=== PATIENT | male | born 1960 | race Caucasian/White ===

== ENCOUNTER → 2019-06-22 09:47 | Outpatient (BNVA) | payer MEDICARE, MEDICAID, SELFPAY | PROVIDERS: Family Provider Nurse Practitioner Family; PCP Nurse Practitioner Family | DX: Z94.4 Liver transplant status (principal) | CPT/HCPCS: 80053; 82977; 83735; 85007; 85027 ==

== ENCOUNTER → 2019-07-11 13:53 | Outpatient (BNVA) | payer MEDICARE, MEDICAID, SELFPAY | PROVIDERS: Family Provider Nurse Practitioner Family; PCP Nurse Practitioner Family; Visit Provider Registered Nurse | DX: E11.9 Type 2 diabetes mellitus without complications (principal) | CPT/HCPCS: 83036 ==

== ENCOUNTER 2019-08-18 15:18 | Outpatient (CLI) | payer MEDICARE, MEDICAID, SELFPAY | END 2019-08-18 15:19 | disposition home or self-care (01) | LOC: RADWPI 15:25 | PROVIDERS: Family Provider Nurse Practitioner Family; PCP Registered Nurse; Visit Provider Nurse Practitioner Family | DX: Z01.89 Encounter for other specified special examinations (principal) ==

== ENCOUNTER → 2019-08-31 08:25 | Outpatient (BNVA) | payer MEDICARE, MEDICAID, SELFPAY | PROVIDERS: Family Provider Nurse Practitioner Family; PCP Registered Nurse; Visit Provider Internal Medicine Gastroenterology | DX: Z79.899 Other long term (current) drug therapy (principal); Z94.4 Liver transplant status | CPT/HCPCS: 11042; 80053; 80197; 82977; 83735; 85007; 85027 ==

== ENCOUNTER 2019-09-08 09:00 | Outpatient (RCR) | payer MEDICARE, MEDICAID, SELFPAY ==
--- NOTE | 2019-08-18 15:27 | XR_ITS ---
WS: [id number] FOOT LEFT TECHNIQUE: 3 views of the left foot CLINICAL INFORMATION: PAIN REDNESS, NONHEALING ULCER COMPARISON: None. FINDINGS: Normal metatarsals. Advanced urinary changes involving the tarsal bones and TMT joints. Hammertoe def ormities. Soft tissue edema overlying the fifth digit. Plantar calcaneal spurring. No evidence of ost eomyelitis. XR/XR foot LT min 3V* 12561 IMPRESSION: No evidence of osteomyelitis
== END 2019-09-13 23:59 | disposition home or self-care (01) ==
LOC: WOUND 09:00
PROVIDERS: Family Provider Nurse Practitioner Family; PCP Nurse Practitioner Family; Visit Provider Nurse Practitioner Family
DX: E11.621 Type 2 diabetes mellitus with foot ulcer (principal); L97.522 Non-pressure chronic ulcer of other part of left foot with fat layer exposed; M79.672 Pain in left foot
CPT/HCPCS: 11042; 73630; 87070; 87077; 87176; 87186; 87205; G0463; L3260

== ENCOUNTER → 2019-11-22 09:18 | Outpatient (BNVA) | payer MEDICARE, MEDICAID, SELFPAY | PROVIDERS: Family Provider Nurse Practitioner Family; PCP Registered Nurse; Visit Provider Internal Medicine Gastroenterology | DX: Z84.89 Family history of other specified conditions (principal); Z94.4 Liver transplant status; E08.621 Diabetes mellitus due to underlying condition with foot ulcer; L97.422 Non-pressure chronic ulcer of left heel and midfoot with fat layer exposed | CPT/HCPCS: 80053; 80197; 82977; 83036; 83735; 85007; 85027 ==

== ENCOUNTER → 2020-01-19 10:16 | Outpatient (BNVA) | payer MEDICARE, MEDICAID, SELFPAY | PROVIDERS: Family Provider Nurse Practitioner Family; PCP Registered Nurse; Visit Provider Internal Medicine Gastroenterology | DX: E08.621 Diabetes mellitus due to underlying condition with foot ulcer (principal); L97.422 Non-pressure chronic ulcer of left heel and midfoot with fat layer exposed; Z94.4 Liver transplant status | CPT/HCPCS: 80053; 80197; 82977; 83036; 83735; 85007; 85027 ==

== ENCOUNTER → 2020-02-28 11:15 | Outpatient (BNVA) | payer MEDICARE, MEDICAID, SELFPAY | PROVIDERS: Family Provider Nurse Practitioner Family; PCP Registered Nurse; Visit Provider Registered Nurse | DX: Z94.4 Liver transplant status (principal); Z79.899 Other long term (current) drug therapy | CPT/HCPCS: 80053; 80197; 82977; 83735; 85007; 85027 ==

== ENCOUNTER → 2020-03-14 09:02 | Outpatient (BNVA) | payer MEDICARE, MEDICAID, SELFPAY | PROVIDERS: Family Provider Nurse Practitioner Family; PCP Registered Nurse; Visit Provider Internal Medicine Gastroenterology | DX: Z94.4 Liver transplant status (principal) | CPT/HCPCS: 80053; 80197; 82977; 83735; 85025 ==

== ENCOUNTER → 2020-06-26 08:22 | Outpatient (BNVA) | payer MEDICARE, MEDICAID, SELFPAY | PROVIDERS: Family Provider Nurse Practitioner Family; PCP Registered Nurse; Visit Provider Internal Medicine Gastroenterology | DX: E11.9 Type 2 diabetes mellitus without complications (principal); Z94.4 Liver transplant status | CPT/HCPCS: 80053; 80197; 82977; 83036; 83735; 85007; 85027 ==

== ENCOUNTER → 2020-07-03 14:23 | Outpatient (BNVA) | payer MEDICARE, MEDICAID, SELFPAY | PROVIDERS: Family Provider Nurse Practitioner Family; PCP Registered Nurse; Visit Provider Registered Nurse | DX: Z20.828 Contact with and (suspected) exposure to other viral communicable diseases (principal) | CPT/HCPCS: 87635 ==

== ENCOUNTER → 2020-08-21 08:07 | Outpatient (BNVA) | payer MEDICARE, MEDICAID, SELFPAY | PROVIDERS: Family Provider Nurse Practitioner Family; PCP Registered Nurse; Visit Provider Internal Medicine Gastroenterology | DX: Z94.4 Liver transplant status (principal); E11.9 Type 2 diabetes mellitus without complications | CPT/HCPCS: 80053; 80197; 82977; 83735; 85007; 85027 ==

== ENCOUNTER → 2020-10-26 08:40 | Outpatient (BNVA) | payer MEDICARE, MEDICAID, SELFPAY | PROVIDERS: Family Provider Nurse Practitioner Family; PCP Registered Nurse; Visit Provider Internal Medicine Gastroenterology | DX: Z94.4 Liver transplant status (principal) | CPT/HCPCS: 80053; 80197; 82977; 83735; 85007; 85027 ==

== ENCOUNTER → 2020-12-20 08:40 | Outpatient (BNVA) | payer MEDICARE, MEDICAID, SELFPAY | PROVIDERS: Family Provider Nurse Practitioner Family; PCP Registered Nurse; Visit Provider Internal Medicine Gastroenterology | DX: Z94.4 Liver transplant status (principal); E11.9 Type 2 diabetes mellitus without complications | CPT/HCPCS: 80053; 80197; 83036; 83735; 85025 ==

== ENCOUNTER → 2021-03-04 09:15 | Outpatient (BNVA) | payer MEDICARE, MEDICAID, SELFPAY | PROVIDERS: Family Provider Nurse Practitioner Family; PCP Registered Nurse; Visit Provider Internal Medicine Gastroenterology | DX: Z94.4 Liver transplant status (principal) | CPT/HCPCS: 80053; 80197; 82977; 83735; 85007; 85027 ==

== ENCOUNTER → 2021-04-18 08:11 | Outpatient (BNVA) | payer MEDICARE, MEDICAID, SELFPAY | PROVIDERS: Family Provider Nurse Practitioner Family; PCP Registered Nurse; Visit Provider Internal Medicine Gastroenterology | DX: Z94.4 Liver transplant status (principal) | CPT/HCPCS: 80053; 80197; 82977; 83735; 85007; 85027 ==

== ENCOUNTER → 2021-06-28 09:16 | Outpatient (BNVA) | payer MEDICARE, MEDICAID, SELFPAY | PROVIDERS: Family Provider Nurse Practitioner Family; PCP Registered Nurse; Visit Provider Internal Medicine Gastroenterology | DX: E11.9 Type 2 diabetes mellitus without complications (principal); Z94.4 Liver transplant status | CPT/HCPCS: 80053; 80197; 83735; 85025 ==

== ENCOUNTER → 2021-08-21 11:29 | Outpatient (BNVA) | payer MEDICARE, MEDICAID, SELFPAY | PROVIDERS: Family Provider Nurse Practitioner Family; PCP Registered Nurse; Referring Provider Registered Nurse; Visit Provider Specialist | DX: M25.462 Effusion, left knee (principal) | CPT/HCPCS: 73560; 73565 ==

== ENCOUNTER → 2021-08-28 08:59 | Outpatient (BNVA) | payer MEDICARE, MEDICAID, SELFPAY | PROVIDERS: Family Provider Nurse Practitioner Family; PCP Registered Nurse; Visit Provider Internal Medicine Gastroenterology | DX: Z94.4 Liver transplant status (principal); E11.9 Type 2 diabetes mellitus without complications; I10 Essential (primary) hypertension | CPT/HCPCS: 80053; 80197; 82977; 83036; 83735; 85025 ==

== ENCOUNTER → 2021-10-18 13:13 | Outpatient (BNVA) | payer MEDICARE, MEDICAID, SELFPAY | PROVIDERS: Family Provider Nurse Practitioner Family; PCP Registered Nurse; Visit Provider Surgery | DX: E11.621 Type 2 diabetes mellitus with foot ulcer (principal); L97.511 Non-pressure chronic ulcer of other part of right foot limited to breakdown of skin; Z87.891 Personal history of nicotine dependence | CPT/HCPCS: 11042; 73630; 99213 ==

== ENCOUNTER 2021-10-18 14:42 | Outpatient (CLI) | payer MEDICARE, MEDICAID, SELFPAY ==
--- NOTE | 2021-10-18 14:59 | XR_ITS ---
WS: [id number] Right foot, 3 views, 10/18/2021 Clinical Data: DIABETES MELLITUS DUE TO UNDERLYING CONDITION W/FOOT ULCER Comparison: Right foot, 09/13/2016. Findings: The first through fifth metacarpal tarsal heads are absent and have probably been resected. There is fusion of the distal aspects of the right second, third and fourth metatarsals unchanged. There is p eriosteal reaction along the medial aspect of the distal right fifth metatarsal. There is absence of the right fourth and fifth toes. There is sclerosis of the right tibial talar articulation unchanged. No fractures or dislocations are seen. There is a plantar spur and calcification in the distal Achilles tendon. XR/XR foot RT min 3V* 16442 Impression: 1. Probable amputation of the heads of the right first through fifth metatarsal s unchanged. 2. Fusion between the right second through fourth metatarsals distally unchange d. 3. Deformity of the right first metatarsal and right fifth metatarsal which rem ains the same. 4. Sclerosis of the tibial talar articulation unchanged.
== END 2021-10-18 14:43 | disposition home or self-care (01) ==
LOC: RAD 14:46
PROVIDERS: Family Provider Nurse Practitioner Family; PCP Registered Nurse; Visit Provider Surgery
DX: E11.621 Type 2 diabetes mellitus with foot ulcer (principal)
CPT/HCPCS: 11042; 73630; 99213

== ENCOUNTER → 2021-10-25 09:54 | Outpatient (BNVA) | payer MEDICARE, MEDICAID, SELFPAY | PROVIDERS: Family Provider Nurse Practitioner Family; PCP Registered Nurse; Visit Provider Emergency Medicine | DX: E11.621 Type 2 diabetes mellitus with foot ulcer (principal); L97.511 Non-pressure chronic ulcer of other part of right foot limited to breakdown of skin; I96 Gangrene, not elsewhere classified; Z94.4 Liver transplant status | CPT/HCPCS: 11042; 80053; 80197; 82977; 83735; 85007; 85027; A6210 ==

== ENCOUNTER → 2021-10-29 12:27 | Outpatient (BNVA) | payer MEDICARE, MEDICAID, SELFPAY | PROVIDERS: Family Provider Nurse Practitioner Family; PCP Registered Nurse; Referring Provider Surgery; Visit Provider Podiatrist Foot & Ankle Surgery | DX: E11.621 Type 2 diabetes mellitus with foot ulcer (principal); L97.512 Non-pressure chronic ulcer of other part of right foot with fat layer exposed; Q66.70 Congenital pes cavus, unspecified foot; E11.42 Type 2 diabetes mellitus with diabetic polyneuropathy; M79.671 Pain in right foot | CPT/HCPCS: 73630; 99203; 99204 ==

== ENCOUNTER → 2021-11-01 09:19 | Outpatient (BNVA) | payer MEDICARE, MEDICAID, SELFPAY | PROVIDERS: Family Provider Nurse Practitioner Family; PCP Registered Nurse; Visit Provider Surgery | DX: E11.621 Type 2 diabetes mellitus with foot ulcer (principal); L97.511 Non-pressure chronic ulcer of other part of right foot limited to breakdown of skin; I96 Gangrene, not elsewhere classified | CPT/HCPCS: 11042 ==

== ENCOUNTER → 2021-11-08 09:44 | Outpatient (BNVA) | payer MEDICARE, MEDICAID, SELFPAY | PROVIDERS: Family Provider Nurse Practitioner Family; PCP Registered Nurse; Visit Provider Surgery | DX: E11.621 Type 2 diabetes mellitus with foot ulcer (principal); L97.511 Non-pressure chronic ulcer of other part of right foot limited to breakdown of skin; I96 Gangrene, not elsewhere classified | CPT/HCPCS: 11042; A6210 ==

== ENCOUNTER → 2021-11-15 08:58 | Outpatient (BNVA) | payer MEDICARE, MEDICAID, SELFPAY | PROVIDERS: Family Provider Nurse Practitioner Family; PCP Registered Nurse; Visit Provider Surgery | DX: E11.621 Type 2 diabetes mellitus with foot ulcer (principal); L97.511 Non-pressure chronic ulcer of other part of right foot limited to breakdown of skin; I96 Gangrene, not elsewhere classified | CPT/HCPCS: 97597; A6212 ==

== ENCOUNTER → 2021-11-22 09:37 | Outpatient (BNVA) | payer MEDICARE, MEDICAID, SELFPAY | PROVIDERS: Family Provider Nurse Practitioner Family; PCP Registered Nurse; Visit Provider Nurse Practitioner Family | DX: E11.621 Type 2 diabetes mellitus with foot ulcer (principal); L97.511 Non-pressure chronic ulcer of other part of right foot limited to breakdown of skin; I96 Gangrene, not elsewhere classified | CPT/HCPCS: 15275; A6206; Q4205 ==

== ENCOUNTER → 2021-11-29 09:42 | Outpatient (BNVA) | payer MEDICARE, MEDICAID, SELFPAY | PROVIDERS: Family Provider Nurse Practitioner Family; PCP Registered Nurse; Visit Provider Nurse Practitioner Family | DX: E11.621 Type 2 diabetes mellitus with foot ulcer (principal); L97.511 Non-pressure chronic ulcer of other part of right foot limited to breakdown of skin; I96 Gangrene, not elsewhere classified | CPT/HCPCS: 15275; A6206; Q4205 ==

== ENCOUNTER → 2021-12-05 13:57 | Outpatient (BNVA) | payer MEDICARE, MEDICAID, SELFPAY | PROVIDERS: Family Provider Nurse Practitioner Family; PCP Registered Nurse; Visit Provider Nurse Practitioner Family | DX: E11.621 Type 2 diabetes mellitus with foot ulcer (principal); L97.511 Non-pressure chronic ulcer of other part of right foot limited to breakdown of skin; I96 Gangrene, not elsewhere classified | CPT/HCPCS: 15275; A6206; Q4205 ==

== ENCOUNTER → 2021-12-13 07:51 | Outpatient (BNVA) | payer MEDICARE, MEDICAID, SELFPAY | PROVIDERS: Family Provider Nurse Practitioner Family; PCP Registered Nurse; Visit Provider Surgery | DX: E11.621 Type 2 diabetes mellitus with foot ulcer (principal); L97.512 Non-pressure chronic ulcer of other part of right foot with fat layer exposed; Z09 Encounter for follow-up examination after completed treatment for conditions other than malignant neoplasm; I96 Gangrene, not elsewhere classified | CPT/HCPCS: 11043; A6210; A6212 ==

== ENCOUNTER → 2021-12-20 07:52 | Outpatient (BNVA) | payer MEDICARE, MEDICAID, SELFPAY | PROVIDERS: Family Provider Nurse Practitioner Family; PCP Registered Nurse; Visit Provider Surgery | DX: E11.621 Type 2 diabetes mellitus with foot ulcer (principal); L97.511 Non-pressure chronic ulcer of other part of right foot limited to breakdown of skin; I96 Gangrene, not elsewhere classified; L97.512 Non-pressure chronic ulcer of other part of right foot with fat layer exposed | CPT/HCPCS: 11042; 15271; A6206; A6210; Q4205 ==

== ENCOUNTER → 2021-12-27 08:47 | Outpatient (BNVA) | payer MEDICARE, MEDICAID, SELFPAY | PROVIDERS: Family Provider Nurse Practitioner Family; PCP Registered Nurse; Visit Provider Surgery | DX: E11.621 Type 2 diabetes mellitus with foot ulcer (principal); L97.511 Non-pressure chronic ulcer of other part of right foot limited to breakdown of skin; I96 Gangrene, not elsewhere classified; L97.512 Non-pressure chronic ulcer of other part of right foot with fat layer exposed | CPT/HCPCS: 15271; A6207; Q4205 ==

== ENCOUNTER → 2022-01-02 08:33 | Outpatient (BNVA) | payer MEDICARE, MEDICAID, SELFPAY | PROVIDERS: Family Provider Nurse Practitioner Family; PCP Registered Nurse; Visit Provider Internal Medicine Gastroenterology | DX: Z79.899 Other long term (current) drug therapy (principal); Z94.4 Liver transplant status | CPT/HCPCS: 80053; 80197; 82977; 83735; 85007; 85027 ==

== ENCOUNTER → 2022-01-03 08:30 | Outpatient (BNVA) | payer MEDICARE, MEDICAID, SELFPAY | PROVIDERS: Family Provider Nurse Practitioner Family; PCP Registered Nurse; Visit Provider Nurse Practitioner Family | DX: Z09 Encounter for follow-up examination after completed treatment for conditions other than malignant neoplasm (principal) | CPT/HCPCS: 99212 ==

== ENCOUNTER → 2022-01-17 08:33 | Outpatient (BNVA) | payer MEDICARE, MEDICAID, SELFPAY | PROVIDERS: Family Provider Nurse Practitioner Family; PCP Registered Nurse; Visit Provider Nurse Practitioner Family | DX: Z09 Encounter for follow-up examination after completed treatment for conditions other than malignant neoplasm (principal) | CPT/HCPCS: 99212; A6219 ==

== ENCOUNTER → 2022-02-14 13:03 | Outpatient (BNVA) | payer MEDICARE, MEDICAID, SELFPAY | PROVIDERS: Family Provider Nurse Practitioner Family; PCP Registered Nurse; Visit Provider Surgery | DX: I96 Gangrene, not elsewhere classified (principal); E11.621 Type 2 diabetes mellitus with foot ulcer; L97.512 Non-pressure chronic ulcer of other part of right foot with fat layer exposed | CPT/HCPCS: 11042 ==

== ENCOUNTER → 2022-02-21 09:52 | Outpatient (BNVA) | payer MEDICARE, MEDICAID, SELFPAY | PROVIDERS: Family Provider Nurse Practitioner Family; PCP Registered Nurse; Visit Provider Nurse Practitioner Family | DX: E11.621 Type 2 diabetes mellitus with foot ulcer (principal); L97.512 Non-pressure chronic ulcer of other part of right foot with fat layer exposed; I96 Gangrene, not elsewhere classified | CPT/HCPCS: 11042; 80053; 80197; 82977; 83735; 85007; 85027; A6210 ==

== ENCOUNTER → 2022-02-28 09:57 | Outpatient (BNVA) | payer MEDICARE, MEDICAID, SELFPAY | PROVIDERS: Family Provider Nurse Practitioner Family; PCP Registered Nurse; Visit Provider Nurse Practitioner Family | DX: I96 Gangrene, not elsewhere classified (principal); E11.621 Type 2 diabetes mellitus with foot ulcer; L97.512 Non-pressure chronic ulcer of other part of right foot with fat layer exposed | CPT/HCPCS: 11042 ==

== ENCOUNTER → 2022-03-07 09:58 | Outpatient (BNVA) | payer MEDICARE, MEDICAID, SELFPAY | PROVIDERS: Family Provider Nurse Practitioner Family; PCP Registered Nurse; Visit Provider Surgery | DX: I96 Gangrene, not elsewhere classified (principal); E11.621 Type 2 diabetes mellitus with foot ulcer; L97.512 Non-pressure chronic ulcer of other part of right foot with fat layer exposed | CPT/HCPCS: 15275; A6206; A6250; Q4205 ==

== ENCOUNTER → 2022-03-14 08:34 | Outpatient (BNVA) | payer MEDICARE, MEDICAID, SELFPAY | PROVIDERS: Family Provider Nurse Practitioner Family; PCP Registered Nurse; Visit Provider Surgery | DX: I96 Gangrene, not elsewhere classified (principal); E11.621 Type 2 diabetes mellitus with foot ulcer; L97.512 Non-pressure chronic ulcer of other part of right foot with fat layer exposed | CPT/HCPCS: 15275; A6206; Q4205 ==

== ENCOUNTER → 2022-03-21 08:20 | Outpatient (BNVA) | payer MEDICARE, MEDICAID, SELFPAY | PROVIDERS: Family Provider Nurse Practitioner Family; PCP Registered Nurse; Visit Provider Nurse Practitioner Family | DX: I96 Gangrene, not elsewhere classified (principal); E11.621 Type 2 diabetes mellitus with foot ulcer; L97.512 Non-pressure chronic ulcer of other part of right foot with fat layer exposed | CPT/HCPCS: 15275; A6206; A6250; Q4205 ==

== ENCOUNTER → 2022-03-28 08:36 | Outpatient (BNVA) | payer MEDICARE, MEDICAID, SELFPAY | PROVIDERS: Family Provider Nurse Practitioner Family; PCP Registered Nurse; Visit Provider Nurse Practitioner Family | DX: I96 Gangrene, not elsewhere classified (principal); E11.621 Type 2 diabetes mellitus with foot ulcer; L97.512 Non-pressure chronic ulcer of other part of right foot with fat layer exposed; Z79.84 Long term (current) use of oral hypoglycemic drugs | CPT/HCPCS: 15271; 15275; A6206; A6220; Q4205 ==

== ENCOUNTER → 2022-04-04 09:08 | Outpatient (BNVA) | payer MEDICARE, MEDICAID, SELFPAY | PROVIDERS: Family Provider Nurse Practitioner Family; PCP Registered Nurse; Visit Provider Nurse Practitioner Family | DX: I96 Gangrene, not elsewhere classified (principal); E11.621 Type 2 diabetes mellitus with foot ulcer; L97.512 Non-pressure chronic ulcer of other part of right foot with fat layer exposed; Z79.84 Long term (current) use of oral hypoglycemic drugs | CPT/HCPCS: 11042 ==

== ENCOUNTER → 2022-04-10 10:38 | Outpatient (BNVA) | payer MEDICARE, MEDICAID, SELFPAY | PROVIDERS: Family Provider Nurse Practitioner Family; PCP Registered Nurse; Visit Provider Nurse Practitioner Family | DX: I96 Gangrene, not elsewhere classified (principal); E11.621 Type 2 diabetes mellitus with foot ulcer; L89.892 Pressure ulcer of other site, stage 2 | CPT/HCPCS: 11042 ==

== ENCOUNTER → 2022-04-18 08:27 | Outpatient (BNVA) | payer MEDICARE, MEDICAID, SELFPAY | PROVIDERS: Family Provider Nurse Practitioner Family; PCP Registered Nurse; Visit Provider Surgery | DX: I96 Gangrene, not elsewhere classified (principal); E11.621 Type 2 diabetes mellitus with foot ulcer; L97.512 Non-pressure chronic ulcer of other part of right foot with fat layer exposed | CPT/HCPCS: 11042 ==

== ENCOUNTER → 2022-04-25 08:30 | Outpatient (BNVA) | payer MEDICARE, MEDICAID, SELFPAY | PROVIDERS: Family Provider Nurse Practitioner Family; PCP Registered Nurse; Visit Provider Nurse Practitioner Family | DX: I96 Gangrene, not elsewhere classified (principal); E11.621 Type 2 diabetes mellitus with foot ulcer; L97.512 Non-pressure chronic ulcer of other part of right foot with fat layer exposed | CPT/HCPCS: 11042 ==

== ENCOUNTER → 2022-05-01 13:03 | Outpatient (BNVA) | payer MEDICARE, MEDICAID, SELFPAY | PROVIDERS: Family Provider Nurse Practitioner Family; PCP Registered Nurse; Visit Provider Nurse Practitioner Family | DX: I96 Gangrene, not elsewhere classified (principal); E11.621 Type 2 diabetes mellitus with foot ulcer; L97.512 Non-pressure chronic ulcer of other part of right foot with fat layer exposed | CPT/HCPCS: 11042 ==

== ENCOUNTER → 2022-05-02 08:08 | Outpatient (BNVA) | payer MEDICARE, MEDICAID, SELFPAY | PROVIDERS: Family Provider Nurse Practitioner Family; PCP Registered Nurse; Visit Provider Internal Medicine Gastroenterology | DX: Z94.4 Liver transplant status (principal) | CPT/HCPCS: 80053; 80197; 82977; 83735; 85007; 85027 ==

== ENCOUNTER → 2022-05-15 09:57 | Outpatient (BNVA) | payer MEDICARE, MEDICAID, SELFPAY | PROVIDERS: Family Provider Nurse Practitioner Family; PCP Registered Nurse; Visit Provider Nurse Practitioner Family | DX: I96 Gangrene, not elsewhere classified (principal); E11.621 Type 2 diabetes mellitus with foot ulcer; L89.892 Pressure ulcer of other site, stage 2 | CPT/HCPCS: 15275; A6206; A6250; Q4205 ==

== ENCOUNTER → 2022-05-23 08:45 | Outpatient (BNVA) | payer MEDICARE, MEDICAID, SELFPAY | PROVIDERS: Family Provider Nurse Practitioner Family; PCP Registered Nurse; Visit Provider Nurse Practitioner Family | DX: I96 Gangrene, not elsewhere classified (principal); E11.621 Type 2 diabetes mellitus with foot ulcer; L97.512 Non-pressure chronic ulcer of other part of right foot with fat layer exposed | CPT/HCPCS: 15275; A6206; Q4205 ==

== ENCOUNTER 2022-05-30 09:40 | Outpatient (CLI) | payer MEDICARE, MEDICAID, SELFPAY ==
--- NOTE | 2022-05-30 09:47 | XR_ITS ---
WS: [id number] Right foot, 3 views, 05/30/2022 Clinical Data: Diabetic foot ulcer of the right foot Comparison: Right foot, 10/29/2021 Findings: There is absence of the right first through fifth metatarsal heads. There is a fusion of the right se cond through fourth distal metatarsals. The right fourth and fifth toes are absent. No bone destruction or fragmentation is seen compared to the prior examination. There is osteoarthrit is of the tibial talar articulation. There is calcification in the Achilles tendon. There is a planta r spur. XR/XR foot RT min 3V* [id number] Impression: No change from previous right foot x-ray.
== END 2022-05-30 09:41 | disposition home or self-care (01) ==
PROVIDERS: PCP Registered Nurse; Visit Provider Surgery
DX: E08.621 Diabetes mellitus due to underlying condition with foot ulcer (principal); L97.422 Non-pressure chronic ulcer of left heel and midfoot with fat layer exposed
CPT/HCPCS: 15271; 73630; A6206; Q4205

== ENCOUNTER → 2022-06-13 08:10 | Outpatient (BNVA) | payer MEDICARE, MEDICAID, SELFPAY | PROVIDERS: PCP Registered Nurse; Visit Provider Thoracic Surgery (Cardiothoracic Vascular Surgery) | DX: I96 Gangrene, not elsewhere classified (principal); E11.621 Type 2 diabetes mellitus with foot ulcer; L97.512 Non-pressure chronic ulcer of other part of right foot with fat layer exposed | CPT/HCPCS: 11042 ==

== ENCOUNTER → 2022-06-20 09:09 | Outpatient (BNVA) | payer MEDICARE, MEDICAID, SELFPAY | PROVIDERS: PCP Registered Nurse; Visit Provider Thoracic Surgery (Cardiothoracic Vascular Surgery) | DX: I96 Gangrene, not elsewhere classified (principal); E11.621 Type 2 diabetes mellitus with foot ulcer; L97.512 Non-pressure chronic ulcer of other part of right foot with fat layer exposed | CPT/HCPCS: 80053; 80197; 82977; 83036; 83735; 85007; 85027; 97597; A6219 ==

== ENCOUNTER → 2022-06-25 13:34 | Outpatient (BNVA) | payer MEDICARE, MEDICAID, SELFPAY | PROVIDERS: PCP Registered Nurse; Visit Provider Podiatrist Foot & Ankle Surgery | DX: E08.621 Diabetes mellitus due to underlying condition with foot ulcer (principal); L97.512 Non-pressure chronic ulcer of other part of right foot with fat layer exposed; Q66.70 Congenital pes cavus, unspecified foot; Z79.84 Long term (current) use of oral hypoglycemic drugs | CPT/HCPCS: 99214 ==

== ENCOUNTER → 2022-06-27 09:46 | Outpatient (BNVA) | payer MEDICARE, MEDICAID, SELFPAY | PROVIDERS: PCP Registered Nurse; Visit Provider Thoracic Surgery (Cardiothoracic Vascular Surgery) | DX: I96 Gangrene, not elsewhere classified (principal); E11.621 Type 2 diabetes mellitus with foot ulcer; L89.892 Pressure ulcer of other site, stage 2 | CPT/HCPCS: 11042; A6219 ==

== ENCOUNTER → 2022-07-04 09:52 | Outpatient (BNVA) | payer MEDICARE, MEDICAID, SELFPAY | PROVIDERS: PCP Registered Nurse; Visit Provider Thoracic Surgery (Cardiothoracic Vascular Surgery) | DX: I96 Gangrene, not elsewhere classified (principal); E11.621 Type 2 diabetes mellitus with foot ulcer; L97.512 Non-pressure chronic ulcer of other part of right foot with fat layer exposed | CPT/HCPCS: 11042; A6212 ==

== ENCOUNTER → 2022-07-07 13:47 | Outpatient (BNVA) | payer MEDICARE, MEDICAID, SELFPAY | PROVIDERS: PCP Registered Nurse; Visit Provider Thoracic Surgery (Cardiothoracic Vascular Surgery) | DX: I96 Gangrene, not elsewhere classified (principal); E11.621 Type 2 diabetes mellitus with foot ulcer; L97.512 Non-pressure chronic ulcer of other part of right foot with fat layer exposed | CPT/HCPCS: 11042 ==

== ENCOUNTER → 2022-07-08 08:01 | Outpatient (BNVA) | payer MEDICARE, MEDICAID, SELFPAY | PROVIDERS: PCP Registered Nurse; Visit Provider Podiatrist Foot & Ankle Surgery | DX: E11.621 Type 2 diabetes mellitus with foot ulcer (principal); L97.512 Non-pressure chronic ulcer of other part of right foot with fat layer exposed; Q66.70 Congenital pes cavus, unspecified foot; E11.42 Type 2 diabetes mellitus with diabetic polyneuropathy; Z79.84 Long term (current) use of oral hypoglycemic drugs | CPT/HCPCS: 99214 ==

== ENCOUNTER 2022-07-16 06:13 | Day surgery (SDC) | payer MEDICARE, MEDICAID, SELFPAY ==
[2022-07-15 11:08] VITALS: BMI 33.9
--- NOTE | 2022-07-16 06:08 | W.PM.OPSUD ---
Surgery/Procedure H&P Update DATE OF PROCEDURE: July 16, 2022 DATE H&P PERFORMED: 07/08/22 CHANGES TO PREVIOUS DOCUMENTATION: None PLANNED PROCEDURE: Operation Date: 07/16/22 07:00 Proposed Procedures p ?Incision of bone cortex, Mac tenosuspension and peroneal tendon lengthening all right lower extremity 13165, 15691, 62855,M24.571,M20.40,L97.513(Right) - Jose Jacobs DPM s Tendon Lengthening Foot(Right) - Jose Jacobs DPM
--- NOTE | 2022-07-16 06:24 | PM.OP ---
Operative Report Date of procedure: July 16, 2022 Pre-op diagnosis: Recalcitrant diabetic foot ulcer right foot subfirst metatarsal head. L97.512 Hallux malleus, right. History of osteomyelitis right first metatarsal head. Exostosis right foot Post-op diagnosis: Same Procedure done: ?Incision of bone cortex, Mac tenosuspension and peroneal tendon lengthening all right lower extremity. CPT: 27239, 10759, 75780 Implants: 4 nylon, 4-0 Vicryl, 1 g vancomycin powder Specimens removed/disposition: First metatarsal head and sesamoid sent to microbiology for gram stain and culture Pathology: None Surgeon: Jose Jacobs D.P.M. Account Development Representative: Enrique Estimated blood loss: 5 See intraoperative documentation IV fluids: 0 Urine output: 0 Complications: None Brief History: 61-year-old male with recalcitrant wound right plantar forefoot so first metatarsal. Major challenge with the patient has been offloading of his underlying deformity and source of pedal pressure corresponding to the wound.? Ideally he would have a epithelialized wound to move forward with surgical offloading once wound is healed to reduce risks of postoperative infection.? Unfortunately the wound has been recalcitrant and challenging.? His wound i free of clinical signs of infection at today's visit.? We had a lengthy conversation weighing out pros and cons of proceeding with surgical intervention with the presence of a wound which poses a significantly increased risk for postoperative infection and amputation versus continuing with wound care until wound is fully healed, the length of an open wound was a major component of the latter discussion.? He was present with family, his A1c is well controlled, he has pedal pulses, he will continue to give thought on both options and discuss this further with his son.? Should he wish to proceed with surgical invention he will contact our clinic and this can be scheduled right away should he wish to proceed.? Will continue to follow-up in the wound care clinic until that point.? Surgical intervention would entail Mac tenosuspension and sesamoidectomy with planing of the plantar aspect of the first metatarsal head, ideally this would be all done through a dorsal incision to avoid any plantar incision in proximity to his wound.? Patient wishing to proceed with surgical intervention with weighted risk.? Risks include but are not limited to infection, osteomyelitis, cellulitis, transfer pressure, altered pedal mechanics resulting in new wound formation, need for continued wound care, antibiotic therapies and ultimately at risk for amputation. Procedure: Under mild sedation patient was brought to the operating room and remained on the gurney in supine position. A timeout was performed. Anesthesia was then administered by the anesthesia service. Local anesthesia was injected by myself consisting of 30 cc of one-to-one mixture 0.5% Marcaine plain and 1% lidocaine in a right Jeffery block fashion as well as a V-block proximal to the lateral malleolus at the distal one third of the lateral right leg. Well-padded pneumatic tourniquet was applied to the right high calf. Right lower extremity was then scrubbed, prepped and draped utilizing normal aseptic technique. Right foot was elevated and the right high calf tourniquet was then inflated to 250 mmHg. Attention was directed to the right foot where a wound was appreciated subfirst metatarsal that probes to subcutaneous tissue. Hallux malleus was appreciated to the right great toe. Prominent sesamoids and first metatarsal head plantarly was also palpated. A linear longitudinal incision was made medial and parallel to the extensor houses longus tendon to the right foot through skin with dissection carried down through subcutaneous tissue to the layer of periosteum utilizing sharp and blunt technique. Care was taken to retract and preserve neurovascular and tendinous structures. All bleeders were ligated and cauterized as necessary. Incision was carried down to bone cortex of the distal portion of the first metatarsal and noted to be devitalized. This was sharply debrided. A oblique osteotomy was performed starting at the dorsal distal aspect of the remaining aspect of the right first metatarsal coursing proximal and plantar. The distal part of the first metatarsal and tibial fibular sesamoid were excised these were noted to be dystrophic with erosive changes they were poor in density and consistent with devitalized bone this was sent to microbiology for gram stain and culture. At the level of the osteotomy the remaining bone was of appropriate density and color. The incision was irrigated with copious amounts of sterile skin solution. After incised bone had been removed that was devitalized at the distal aspect of the right first metatarsal of the right great toe was further destabilized, there is a hallux valgus deformity appreciated and the right great toe essentially was a floppy toe intraoperatively without proximal structural support from first metatarsal. No remaining devitalized tissue was appreciated. The extensor hallucis longus tendon was transected at the level of the base of the distal phalanx of the right great toe and transferred through a drill tunnel at the distal remaining aspect of the first metatarsal from medial to lateral and so back to itself under traction to dorsiflex the first metatarsal which was the source of overload and wound formation secondary to pressure in the presence of neuropathy. The extensor hallucis longus tendon was secured and was robust intraoperatively. This was tenodesed to itself utilizing 4-0 nylon. Given the amount of instability to the right great toe to K wires were driven antegrade from the base of the proximal phalanx of the right hallux and then retrograded into the remaining aspect of the first metatarsal to stabilize the right great toe Jyoti fibrosing and pseudoarthrosis over the next 6 weeks. 1 g of vancomycin powder introduced dorsally to the incision followed by closure with 4-0 Vicryl and subcutaneous tissue to close all cavernous area no void remained and skin was closed with 4-0 nylon. Attention was then directed to the peroneal longus tendon superior and posterior to the lateral malleolus. To aid in decreased plantarflexion of the first metatarsal which was excessive preoperatively a peroneal longus Z-lengthening was performed through a small linear incision and secured utilizing 4-0 Vicryl. The incision was flushed with copious amounts of sterile skin solution and closed with 4-0 Vicryl at synovial sheath and subcutaneous tissue and 4-0 nylon at skin. The incision down to bone cortex and removal of devitalized bone in conjunction with Mac tenosuspension and peroneal longus lengthening or surgical efforts to offload the first ray which is a source of perpetual wound that failed several modalities of wound care clinic treatments and offloading. The incisions were dressed with Adaptic, sterile 4 x 4's, Kerlix and Wenceslao wrap. New cam boot was applied to the right foot. Tourniquet was deflated and a prompt hyperemic response was noted to the distal digits of the right foot. Patient tolerated the procedure and anesthesia well and was transferred to the PACU with vital signs stable and vascular status intact. Following a period of postop monitoring he will be discharged home. Will continue antibiotics previously prescribed. Will await bone cultures to make any changes as necessary to antibiotic regimen. Will follow-up in podiatry clinic next week as written on his discharge paperwork. He was provided my cell phone number to contact with any postoperative questions or concerns.
[2022-07-16 06:31] VITALS: BP 142/72; PULSE 74; RESP 18; TEMP 36.7; O2SAT 98
[2022-07-16] MEDS: sodium chloride 0.9% 1,000 ML 30 ML IV (06:39)
[2022-07-16 06:49] LABS: Glucose Point of Care 130 mg/dL (70-110)
[2022-07-16] MEDS: ceFAZolin 2,000 MG in sodium chloride 0.9% (plus) 50 ML 100 MG IV (07:00)
[2022-07-16] MEDS: lidocaine 2% INJ 20 mL INJECTION (07:17)
--- NOTE | 2022-07-16 07:54 | P.ANESASSM_ITS ---
Pre-Anesthetic Assessment Height/Weight: Height 1.83 m Weight 113.398 kg Temp Pulse Resp BP Pulse Ox O2 Del Method 98.1 F 74 18 142/72 98 07/16/22 06:31 07/16/22 06:31 07/16/22 06:31 07/16/22 06:31 07/16/22 06:31 07/16/22 06:35 Preop Diagnosis: Diabetic foot ulcer Operation Date: 07/16/22 07:00 Proposed Procedures p ?Incision of bone cortex, Mac tenosuspension and peroneal tendon lengthening all right lower extremity 59241, 87036, 30948,M24.571,M20.40,L97.513(Right) - Jose Jacobs DPM s Tendon Lengthening Foot(Right) - Jose Jacobs DPM Familial anesthetic complications: none Was Beta Ever taken within 24 hours: Yes Was Clonidine taken within 24 hours: N/A Last intake: Intake Last Liquid Date 07/15/22 Last Liquid Time 21:00 Last Solid Date 07/15/22 Last Solid Time 21:00 Social No alcohol and No tobacco Exam alert, oriented x 3, clear to auscultation bilaterally and regular rate & rhythm Airway Submandibular: within normal limits Cervical ROM: within normal limits Mallampati: Class II Dentition: false CV/HEM Hypertension GI Gastroesophageal Reflux Disease Metabolic Diabetes Mellitus and Morbid Obesity Musc/sk Lower Back Pain Neuropsych Neuropathy Anesthetic Plan ASA status: 3 Anesthesia: Choice Medications/Allergies Home Medications Medication Instructions Recorded Confirmed Last Taken Type carisoprodol 350 mg tablet (Soma) 350 mg PO BID 08/05/19 07/15/22 1 Day Ago History ~07/14/22 magnesium 200 mg tablet 200 mg PO DAILY 08/05/19 07/15/22 1 Day Ago History ~07/14/22 multivitamin,xk-fcgs-nzeqbkca 1 tab PO DAILY 08/05/19 07/15/22 1 Day Ago History (Complete Multivitamin tablet) ~07/14/22 tacrolimus 1 mg capsule, 2 mg PO Q12H 08/05/19 07/15/22 1 Day Ago History immediate-release (Prograf) ~07/14/22 vitamin B complex (B 1 tab PO DAILY 08/05/19 07/08/22 1 Day Ago History Complex-Vitamin B12 tablet) ~01/30/23 lancets (Accu-Chek Multiclix #100 ea 12/02/19 07/08/22 Unknown Rx Lancet) lancets (Accu-Chek Multiclix #100 ea 01/27/20 07/08/22 Unknown Rx Lancet) blood sugar diagnostic (Accu-Chek #100 ea 02/07/21 07/08/22 Unknown Rx Guide test strips) oxycodone 20 mg tablet 20 mg PO QID PRN pain 2 days #8 03/29/21 07/15/22 1 Day Ago Rx tabs ~07/14/22 metformin 1,000 mg tablet See Rx Instructions .Route 05/05/22 07/15/22 07/15/22 Rx .COMPLEX #180 tabs fluoxetine 20 mg capsule See Rx Instructions .Route 06/10/22 07/15/22 1 Day Ago Rx .COMPLEX #30 caps ~07/14/22 omeprazole 40 mg capsule,delayed See Rx Instructions .Route 06/17/22 07/15/22 1 Day Ago Rx release .COMPLEX #90 caps ~07/14/22 pregabalin 225 mg capsule (Lyrica) 225 mg PO BID 07/15/22 07/15/22 1 Day Ago History ~07/14/22 hydrocodone 5 mg-acetaminophen 325 1 tab PO Q12H PRN pain 7 days #14 07/16/22 Unknown Rx mg tablet tabs Allergies Allergy/AdvReac Type Severity Reaction Status Date / Time No Known Allergies Allergy Verified 07/15/22 11:02 [facility] Anesthesia Medical History Depression GERD without esophagitis Hypertension, benign Primary osteoarthritis of right knee Type 2 diabetes, HbA1c goal < 7% Type 2 diabetes, HbA1C goal < 8% Surgical History Hx of liver transplant Social History Smoking and tobacco status: current every day smoker Alcohol intake: former Adopted: No Caregiver/support person: No Lives independently: Yes Current gender identity: Male Data Anesthesia Cardiac Studies: No Data to Display
[2022-07-16] MEDS: vancomycin 1,000 MG SDV 1000 MG INTRA-ARTI (08:10)
[2022-07-16 08:29] VITALS: BP 118/70; PULSE 66; RESP 17; TEMP 36.1; O2SAT 97
[2022-07-16 08:35] VITALS: BP 101/67; PULSE 57; RESP 17; O2SAT 96
[2022-07-16 08:50] VITALS: BP 120/68; PULSE 58; RESP 18; TEMP 36.4; O2SAT 98
[2022-07-16 09:15] VITALS: BP 118/67; PULSE 58; RESP 18; TEMP 36.4; O2SAT 98
--- NOTE | 2022-07-16 14:09 | ANE.PACU2 ---
Inpatient post-anesthesia follow up: Airway intact: Yes Vital signs: Temperature 97.5 F Pulse Rate 58 Respiratory Rate 18 Blood Pressure 118/67 Pulse Oximetry 98 Oxygen Delivery Me thod Room Air Oxygen Flow Rate Fraction of Inspir ed Oxygen Hydration adequate: Yes Nausea and vomiting: No Pain level: 1 Mental status: Baseline
== END 2022-07-16 09:20 | disposition home or self-care (01) ==
PROVIDERS: PCP Registered Nurse; Visit Provider Podiatrist Foot & Ankle Surgery
PROC: (CPT 27685; principal; 2022-07-16 07:00)
PROC: (CPT 28261; 2022-07-16 07:00)
PROC: (CPT 27685; 2022-07-16 07:00)
DX: E11.621 Type 2 diabetes mellitus with foot ulcer (principal); L97.512 Non-pressure chronic ulcer of other part of right foot with fat layer exposed; I10 Essential (primary) hypertension; K21.9 Gastro-esophageal reflux disease without esophagitis; E66.01 Morbid (severe) obesity due to excess calories; Z68.33 Body mass index [BMI] 33.0-33.9, adult; E11.40 Type 2 diabetes mellitus with diabetic neuropathy, unspecified; Z79.84 Long term (current) use of oral hypoglycemic drugs; F17.210 Nicotine dependence, cigarettes, uncomplicated
CPT/HCPCS: 27685; 28005; 36416; 82962; 87070; 87176; 87205; A4216; C1713; J0690; J2704; J3010; J3370; J3490; J7030

== ENCOUNTER → 2022-07-23 14:59 | Outpatient (BNVA) | payer MEDICARE, MEDICAID, SELFPAY | PROVIDERS: PCP Registered Nurse; Visit Provider Podiatrist Foot & Ankle Surgery | DX: L97.512 Non-pressure chronic ulcer of other part of right foot with fat layer exposed (principal); E11.621 Type 2 diabetes mellitus with foot ulcer; E11.42 Type 2 diabetes mellitus with diabetic polyneuropathy; Q66.71 Congenital pes cavus, right foot; Z79.84 Long term (current) use of oral hypoglycemic drugs | CPT/HCPCS: 99024; 99213 ==

== ENCOUNTER → 2022-07-31 13:48 | Outpatient (BNVA) | payer MEDICARE, MEDICAID, SELFPAY | PROVIDERS: PCP Registered Nurse; Visit Provider Podiatrist Foot & Ankle Surgery | DX: E11.621 Type 2 diabetes mellitus with foot ulcer (principal); L97.512 Non-pressure chronic ulcer of other part of right foot with fat layer exposed; Q66.71 Congenital pes cavus, right foot; E11.42 Type 2 diabetes mellitus with diabetic polyneuropathy; Z79.84 Long term (current) use of oral hypoglycemic drugs | CPT/HCPCS: 99024 ==

== ENCOUNTER → 2022-08-06 14:05 | Outpatient (BNVA) | payer MEDICARE, MEDICAID, SELFPAY | PROVIDERS: PCP Registered Nurse; Visit Provider Podiatrist Foot & Ankle Surgery | DX: Z98.890 Other specified postprocedural states (principal); L97.512 Non-pressure chronic ulcer of other part of right foot with fat layer exposed; E11.621 Type 2 diabetes mellitus with foot ulcer; Q66.71 Congenital pes cavus, right foot; E11.42 Type 2 diabetes mellitus with diabetic polyneuropathy; Z79.84 Long term (current) use of oral hypoglycemic drugs | CPT/HCPCS: 73630; 99213 ==

== ENCOUNTER → 2022-08-13 14:03 | Outpatient (BNVA) | payer MEDICARE, MEDICAID, SELFPAY | PROVIDERS: PCP Registered Nurse; Visit Provider Podiatrist Foot & Ankle Surgery | DX: Z98.890 Other specified postprocedural states (principal); E11.621 Type 2 diabetes mellitus with foot ulcer; L97.512 Non-pressure chronic ulcer of other part of right foot with fat layer exposed; Q66.71 Congenital pes cavus, right foot; E11.42 Type 2 diabetes mellitus with diabetic polyneuropathy; Z79.84 Long term (current) use of oral hypoglycemic drugs | CPT/HCPCS: 73630; 99024 ==

== ENCOUNTER → 2022-08-21 14:28 | Outpatient (BNVA) | payer MEDICARE, MEDICAID, SELFPAY | PROVIDERS: PCP Registered Nurse; Visit Provider Podiatrist Foot & Ankle Surgery | DX: Z98.890 Other specified postprocedural states (principal); E11.621 Type 2 diabetes mellitus with foot ulcer; L97.512 Non-pressure chronic ulcer of other part of right foot with fat layer exposed; E11.42 Type 2 diabetes mellitus with diabetic polyneuropathy; Q66.71 Congenital pes cavus, right foot; Z79.84 Long term (current) use of oral hypoglycemic drugs | CPT/HCPCS: 99024 ==

== ENCOUNTER → 2022-08-26 13:13 | Outpatient (BNVA) | payer MEDICARE, MEDICAID, SELFPAY | PROVIDERS: PCP Registered Nurse; Visit Provider Podiatrist Foot & Ankle Surgery | DX: Z98.890 Other specified postprocedural states (principal); E11.621 Type 2 diabetes mellitus with foot ulcer; Q66.71 Congenital pes cavus, right foot; Z79.84 Long term (current) use of oral hypoglycemic drugs; L97.512 Non-pressure chronic ulcer of other part of right foot with fat layer exposed; E11.42 Type 2 diabetes mellitus with diabetic polyneuropathy; Z89.422 Acquired absence of other left toe(s); Z89.411 Acquired absence of right great toe | CPT/HCPCS: 99024; 99214 ==

== ENCOUNTER → 2022-09-04 08:17 | Outpatient (BNVA) | payer MEDICARE, MEDICAID, SELFPAY | PROVIDERS: PCP Registered Nurse; Visit Provider Nurse Practitioner Family | DX: Z94.4 Liver transplant status (principal); E11.9 Type 2 diabetes mellitus without complications; I10 Essential (primary) hypertension; E11.621 Type 2 diabetes mellitus with foot ulcer; L97.512 Non-pressure chronic ulcer of other part of right foot with fat layer exposed | CPT/HCPCS: 80053; 80197; 82977; 83735; 85007; 85027 ==

== ENCOUNTER → 2022-10-20 08:43 | Outpatient (BNVA) | payer MEDICARE, MEDICAID, SELFPAY | PROVIDERS: PCP Registered Nurse; Visit Provider Registered Nurse | DX: Z94.4 Liver transplant status (principal); E11.8 Type 2 diabetes mellitus with unspecified complications | CPT/HCPCS: 80053; 80061; 80197; 82977; 83036; 83735; 85007; 85027 ==

== ENCOUNTER → 2022-12-19 08:56 | Outpatient (BNVA) | payer MEDICARE, MEDICAID, SELFPAY | PROVIDERS: PCP Registered Nurse; Visit Provider Internal Medicine Gastroenterology | DX: Z94.4 Liver transplant status (principal) | CPT/HCPCS: 80053; 80197; 82977; 83735; 85007; 85027 ==

== ENCOUNTER → 2023-07-16 10:07 | Outpatient (BNVA) | payer MEDICARE, MEDICAID, SELFPAY | PROVIDERS: PCP Registered Nurse; Visit Provider Registered Nurse | DX: E11.9 Type 2 diabetes mellitus without complications (principal) | CPT/HCPCS: 80053; 80061; 82607; 83036; 83721 ==

== ENCOUNTER → 2023-10-27 10:08 | Outpatient (BNVA) | payer MEDICARE, MEDICAID, SELFPAY | PROVIDERS: PCP Registered Nurse; Visit Provider Registered Nurse | DX: I10 Essential (primary) hypertension | CPT/HCPCS: 80061 ==

== ENCOUNTER → 2024-03-10 11:50 | Outpatient (BNVA) | payer MEDICARE, MEDICAID, SELFPAY | PROVIDERS: PCP Registered Nurse; Visit Provider Registered Nurse | DX: E87.1 Hypo-osmolality and hyponatremia (principal) | CPT/HCPCS: 80053 ==

== ENCOUNTER → 2024-08-22 08:56 | Outpatient (BNVA) | payer MEDICARE, MEDICAID, SELFPAY | PROVIDERS: PCP Registered Nurse; Visit Provider Registered Nurse | DX: E53.8 Deficiency of other specified B group vitamins (principal); Z94.4 Liver transplant status; L97.422 Non-pressure chronic ulcer of left heel and midfoot with fat layer exposed; L97.512 Non-pressure chronic ulcer of other part of right foot with fat layer exposed; E11.621 Type 2 diabetes mellitus with foot ulcer | CPT/HCPCS: 80053; 80197; 82607; 82977; 83036; 83735; 85007; 85027 ==

== ENCOUNTER → 2024-10-05 07:12 | Outpatient (BNVA) | payer MEDICARE, MEDICAID, SELFPAY | PROVIDERS: PCP Registered Nurse; Visit Provider Podiatrist Foot & Ankle Surgery | DX: E11.42 Type 2 diabetes mellitus with diabetic polyneuropathy (principal); Z89.422 Acquired absence of other left toe(s); Z89.411 Acquired absence of right great toe; E11.621 Type 2 diabetes mellitus with foot ulcer; L97.522 Non-pressure chronic ulcer of other part of left foot with fat layer exposed; Q66.71 Congenital pes cavus, right foot; Z89.421 Acquired absence of other right toe(s); Z79.84 Long term (current) use of oral hypoglycemic drugs | CPT/HCPCS: 99214 ==

== ENCOUNTER → 2024-10-26 09:58 | Outpatient (BNVA) | payer MEDICARE, MEDICAID, SELFPAY | PROVIDERS: PCP Registered Nurse; Visit Provider Podiatrist Foot & Ankle Surgery | DX: E11.42 Type 2 diabetes mellitus with diabetic polyneuropathy (principal); Z89.422 Acquired absence of other left toe(s); E11.621 Type 2 diabetes mellitus with foot ulcer; Z89.411 Acquired absence of right great toe; L97.522 Non-pressure chronic ulcer of other part of left foot with fat layer exposed; Q66.71 Congenital pes cavus, right foot; Z89.421 Acquired absence of other right toe(s); Z79.84 Long term (current) use of oral hypoglycemic drugs | CPT/HCPCS: 99213 ==

== ENCOUNTER → 2024-11-16 10:30 | Outpatient (BNVA) | payer MEDICARE, MEDICAID, SELFPAY | PROVIDERS: PCP Registered Nurse; Visit Provider Podiatrist Foot & Ankle Surgery | DX: E11.42 Type 2 diabetes mellitus with diabetic polyneuropathy (principal); Z89.422 Acquired absence of other left toe(s); Z89.411 Acquired absence of right great toe; L97.522 Non-pressure chronic ulcer of other part of left foot with fat layer exposed; Q66.71 Congenital pes cavus, right foot; Z89.421 Acquired absence of other right toe(s); E11.621 Type 2 diabetes mellitus with foot ulcer; Z79.84 Long term (current) use of oral hypoglycemic drugs | CPT/HCPCS: 99213 ==

== ENCOUNTER → 2024-12-05 08:53 | Outpatient (BNVA) | payer MEDICARE, MEDICAID, SELFPAY | PROVIDERS: PCP Registered Nurse; Visit Provider Registered Nurse | DX: Z94.4 Liver transplant status (principal) | CPT/HCPCS: 80053; 80197; 82977; 83735; 85007; 85027 ==

== ENCOUNTER → 2025-03-02 09:15 | Outpatient (BNVA) | payer MEDICARE, MEDICAID, SELFPAY | PROVIDERS: PCP Registered Nurse; Visit Provider Registered Nurse | DX: T86.40 Unspecified complication of liver transplant (principal); E11.9 Type 2 diabetes mellitus without complications | CPT/HCPCS: 80053; 80197; 83036; 83735; 85007; 85027 ==

== ENCOUNTER → 2025-03-28 12:15 | Outpatient (BNVA) | payer OTHER, SELFPAY | PROVIDERS: PCP Registered Nurse; Visit Provider Podiatrist Foot & Ankle Surgery | DX: E11.42 Type 2 diabetes mellitus with diabetic polyneuropathy (principal); E11.621 Type 2 diabetes mellitus with foot ulcer; L97.522 Non-pressure chronic ulcer of other part of left foot with fat layer exposed; L03.116 Cellulitis of left lower limb; Z79.84 Long term (current) use of oral hypoglycemic drugs | CPT/HCPCS: 11042; 11045; 99214 ==

== ENCOUNTER 2025-04-15 05:00 | Outpatient (CLI) | payer MEDICARE, SELFPAY | END 2025-04-15 05:01 | disposition home or self-care (01) | LOC: SPT 05-04 11:07 | PROVIDERS: Visit Provider Podiatrist Foot & Ankle Surgery | DX: Z46.89 Encounter for fitting and adjustment of other specified devices (principal); L97.522 Non-pressure chronic ulcer of other part of left foot with fat layer exposed; L03.116 Cellulitis of left lower limb | CPT/HCPCS: L4361 ==

== ENCOUNTER → 2025-04-18 12:38 | Outpatient (BNVA) | payer OTHER, SELFPAY | PROVIDERS: PCP Registered Nurse; Visit Provider Podiatrist Foot & Ankle Surgery | DX: E11.621 Type 2 diabetes mellitus with foot ulcer (principal); L97.522 Non-pressure chronic ulcer of other part of left foot with fat layer exposed; L03.116 Cellulitis of left lower limb; E11.42 Type 2 diabetes mellitus with diabetic polyneuropathy; Z79.84 Long term (current) use of oral hypoglycemic drugs | CPT/HCPCS: 11042; 73630 ==

== ENCOUNTER → 2025-05-03 12:27 | Outpatient (BNVA) | payer OTHER, SELFPAY | PROVIDERS: PCP Registered Nurse; Visit Provider Podiatrist Foot & Ankle Surgery | DX: E11.621 Type 2 diabetes mellitus with foot ulcer (principal); L97.522 Non-pressure chronic ulcer of other part of left foot with fat layer exposed; L97.523 Non-pressure chronic ulcer of other part of left foot with necrosis of muscle; L03.116 Cellulitis of left lower limb; E11.42 Type 2 diabetes mellitus with diabetic polyneuropathy; Z79.84 Long term (current) use of oral hypoglycemic drugs | CPT/HCPCS: 11043; 73630; 87070; 87075; 87077; 87186; 87205; 99214 ==

== ENCOUNTER → 2025-05-15 13:49 | Outpatient (BNVA) | payer MEDICARE, SELFPAY | PROVIDERS: Visit Provider Podiatrist Foot & Ankle Surgery | DX: E11.42 Type 2 diabetes mellitus with diabetic polyneuropathy (principal); E11.621 Type 2 diabetes mellitus with foot ulcer; L97.523 Non-pressure chronic ulcer of other part of left foot with necrosis of muscle; Q66.71 Congenital pes cavus, right foot; Z79.84 Long term (current) use of oral hypoglycemic drugs; Z89.421 Acquired absence of other right toe(s) | CPT/HCPCS: 11043; 99214 ==

== ENCOUNTER → 2025-05-19 11:04 | Outpatient (BNVA) | payer MEDICARE, SELFPAY | PROVIDERS: PCP Registered Nurse; Visit Provider Internal Medicine Gastroenterology | DX: Z94.4 Liver transplant status (principal); L97.422 Non-pressure chronic ulcer of left heel and midfoot with fat layer exposed; E08.621 Diabetes mellitus due to underlying condition with foot ulcer | CPT/HCPCS: 80053; 80197; 82977; 83036; 83735; 85007; 85027 ==

== ENCOUNTER → 2025-05-26 10:32 | Day surgery (SDC) | payer MEDICARE, SELFPAY ==
[2025-05-26] VITALS (7 sets, daily range): BP systolic 94–113; BP diastolic 53–67; PULSE 63–97; RESP 16–18; TEMP 36.4–36.6; O2SAT 96–98; BMI 31.1
--- NOTE | 2025-05-26 11:13 | P.HPUD_ITS ---
Surgery/Procedure H&P Update DATE OF PROCEDURE: May 26, 2025 DATE H&P PERFORMED: 05/15/25 H&P UPDATE INFORMATION: I have reviewed H&P completed within last 30 days, I have examined patient prior to procedure, No changes to prior documentation, H&P is in [facility] EMR on date indicated and Risks and benefits of the procedure reviewed PREOP DIAGNOSIS: Left tailor's bunion PLANNED PROCEDURE: Operation Date: 05/26/25 12:40 Proposed Procedures p LEFT Fifth Metarsal Head Resection(Left) - Jose Jacobs DPM
--- NOTE | 2025-05-26 11:16 | ANES.PREANE2 ---
Pre-Anesthetic Assessment Height/Weight: Height 6 ft Preop Diagnosis: Left tailor's bunion Operation Date: 05/26/25 12:40 Proposed Procedures p LEFT Fifth Metarsal Head Resection(Left) - Jose Jacobs DPM Was Beta Ever taken within 24 hours: N/A Was Clonidine taken within 24 hours: N/A Social No alcohol and No tobacco With smoking 16 years ago Exam alert, oriented x 3, clear to auscultation bilaterally and regular rate & rhythm Airway Submandibular: within normal limits Cervical ROM: within normal limits Mallampati: Class II Dentition: false Anesthetic Plan ASA status: 3 Anesthesia: General Other: No prior issues with anesthesia NPO since yesterday evening History of hypertension on benazepril Type 2 diabetes on metformin. Hemoglobin A1c 5.3 Prior smoker, quit 16 years ago S/p liver transplant 16 years ago and doing well Patient has pretty severe neuropathy [facility] Medications/Allergies Home Medications ?Medication ?Instructions ?Recorded ?Confirmed ?Last Taken ?Type carisoprodol 350 mg tablet (Soma) 350 mg PO BID PRN Muscle Spasm 08/05/19 05/26/25 05/24/25 History multivitamin,qd-ijrj-onnjvbgn 1 tab PO DAILY 08/05/19 05/26/25 05/25/25 History (Complete Multivitamin tablet) tacrolimus 1 mg capsule, 2 mg PO Q12H 08/05/19 05/26/25 05/26/25 History immediate-release (Prograf) vitamin B complex (B 1 tab PO DAILY 08/05/19 05/26/25 05/25/25 History Complex-Vitamin B12 tablet) lancets (Accu-Chek Multiclix #100 ea 12/02/19 05/26/25 Unknown Rx Lancet) lancets (Accu-Chek Multiclix #100 ea 01/27/20 05/26/25 Unknown Rx Lancet) blood sugar diagnostic (Accu-Chek #100 ea 02/07/21 05/26/25 Unknown Rx Guide test strips) 3 pairs of inserts #1 ea 08/26/22 05/26/25 Unknown Rx 3 Pairs of Custom Molded #1 ea 10/01/22 05/26/25 Unknown Rx Accommodative Orthotics magnesium 200 mg tablet See Rx Instructions PO DAILY 07/16/23 05/26/25 05/25/25 History fluoxetine 20 mg capsule 20 mg PO DAILY #90 caps 08/22/24 05/26/25 05/26/25 Rx fluoxetine 40 mg capsule See Rx Instructions .Route 08/22/24 05/26/25 05/26/25 Rx .COMPLEX #90 caps 1 pair of Custom accomodative #1 ea 10/05/24 05/26/25 Unknown Rx insole with diabetic shoes benazepril 10 mg tablet 10 mg PO DAILY #90 tabs 04/25/25 05/26/25 05/25/25 Rx CAM walker #1 ea 05/03/25 05/26/25 Unknown Rx metformin 1,000 mg tablet 1,000 mg PO DAILY 05/25/25 05/26/25 05/25/25 History oxycodone 10 mg tablet,oral ONLY 10 mg PO DAILY 05/25/25 05/26/25 05/25/25 History (not feeding tubes) ciprofloxacin HCl 500 mg tablet 500 mg PO BID 7 days #14 tabs 05/26/25 Unknown Rx hydrocodone 5 mg-acetaminophen 325 1 tab PO Q8H PRN pain 7 days #21 05/26/25 Unknown Rx mg tablet tabs Allergies Allergy/AdvReac Type Severity Reaction Status Date / Time No Known Allergies Allergy Verified 05/25/25 11:29 [facility] Anesthesia Medical History (Updated 05/19/25 @ 16:59 by Jose Jacobs DPM) Cervical disc disease Type 2 diabetes mellitus with hemoglobin A1c goal of 7.0%-8.0% Primary osteoarthritis of right knee Depression GERD without esophagitis Type 2 diabetes, HbA1c goal < 7% Type 2 diabetes, HbA1C goal < 8% Hypertension, benign Surgical History Hx of liver transplant Social History Smoking and tobacco/nicotine status: former use of tobacco/nicotine Alcohol intake: former Substance/Drug Use: never Adopted: No Caregiver/support person: No Lives independently: Yes Do you think of yourself as: Straight/Heterosexual Current gender identity: Male
[2025-05-26] MEDS: ceFAZolin 2,000 mg SDV 2000 MG IVP (11:47)
--- NOTE | 2025-05-26 11:50 | P.OP_ITS ---
Operative Report Date of procedure: May 30, 2025 Pre-op diagnosis: Diabetic peripheral neuropathy associated with type 2 diabetes mellitus E11.42 Non-pressure chronic ulcer of other part of left foot with necrosis of muscle L97.523 Cavus deformity of foot Q66.70 Aleksey domínguez, left M21.622 Post-op diagnosis: Diabetic peripheral neuropathy associated with type 2 diabetes mellitus E11.42 Non-pressure chronic ulcer of other part of left foot with necrosis of muscle L97.523 Cavus deformity of foot Q66.70 Aleksey domínguez, left M21.622 Procedure done: Left fifth metatarsal head resection. CPT code 67567 Implants: 3-0 Vicryl, 4 nylon Specimens removed/disposition: None Pathology: None Surgeon: Jose Jacobs DPM Principal Clerk Typist: Blaise Estimated blood loss: 2 mL See intraoperative documentation Complications: No complications Brief History: Patient examined and evaluated, findings and treatment options discussed with patient at length. He has had a wound subfifth metatarsal head to the left foot was previously infected with wound culture significant for Pseudomonas and Morganella species responded well to oral antibiotics cellulitis is resolved, no purulent drainage given the underlying deformity of a aleksey raymundo patient already offloaded with accommodative orthotics and orthopedic shoes he would like to have preventative surgical offloading, can tentatively proceed 05/26/2025 outpatient consisting of left foot wound debridement and left fifth metatarsal head resection Procedure: Under mild sedation the patient was brought to the operating room and remained on the gurney in supine position. A timeout was performed. Anesthesia was administered by the anesthesia service. Local anesthesia injected by myself consisting of 20 cc of 0.5% Marcaine plain and 20 cc of Exparel in a left reverse Jeffery block fashion. Well-padded pneumatic tourniquet applied to the left ankle. The left lower extremity was scrubbed, prepped and draped utilizing normal aseptic technique. Left ankle tourniquet was then inflated to 250 mmHg. Attention was directed to the dorsal lateral aspect of the left fifth metatarsal plantar joint where a linear longitudinal incision was made lateral and parallel to the extensor digitorum longus dissection was carried down to the layer of the left fifth toe. Dissection was carried down through subcutaneous tissue to the layer of joint capsule and fifth metatarsal head bone utilizing a combination of sharp and blunt technique. Care was taken to retract and preserve neurovascular and tendinous structures. All bleeders were ligated and cauterized as necessary. Head of the fifth metatarsal was freed sharply of its soft tissue and capsular attachments. Beveled osteotomy through the distal diaphysis of the left fifth metatarsal performed with a sagittal saw and all rough edges smoothed. Head of fifth metatarsal was excised and passed from the operative field. All bleeders were ligated and cauterized as necessary. The incision was irrigated with copious amounts of sterile send solution and closed with deep tissue and subcutaneous tissue reapproximated with 3-0 Vicryl and skin with 4-0 nylon. Incision was dressed with Xeroform sterile 4 x 4 gauze, Kerlix and Wenceslao wrap followed by application of a cam boot to the left lower extremity. Tourniquet was deflated and a prompt hyperemic response is noted to the distal digits of the left foot. Patient tolerated the procedure and anesthesia well and was transferred to the PACU with vital signs stable and vascular status intact. Following a period of postoperative monitoring we discharged home without home care instructions and scheduled follow-up.
--- NOTE | 2025-05-26 12:10 | P.BOP_ITS ---
Date of Procedure: 08/28/23 Surgeon: Jose Jacobs DPM Linen Supply Load Builder(s): Ramona Procedure(s) performed: Left fifth metatarsal head resection Findings of the procedure(s): None Estimated blood loss: 1 mL Specimen(s) removed: Left fifth metatarsal head to waste. Post-operative diagnosis: Left tailor's bunion
--- NOTE | 2025-05-26 12:35 | ANE.PACU2 ---
Inpatient post-anesthesia follow up: Airway intact: Yes Vital signs: Temperature 98 F Pulse Rate 63 Respiratory Rate 18 Blood Pressure 108/53 Pulse Oximetry 97 Oxygen Delivery Me thod Room Air Oxygen Flow Rate Fraction of Inspir ed Oxygen Hydration adequate: Yes Nausea and vomiting: No Pain level: 1 Mental status: Baseline
== END | disposition home or self-care (01) ==
PROVIDERS: PCP Registered Nurse; Visit Provider Podiatrist Foot & Ankle Surgery
PROC: (CPT 28112; principal; 2025-05-26 12:30)
DX: E11.42 Type 2 diabetes mellitus with diabetic polyneuropathy (principal); L97.523 Non-pressure chronic ulcer of other part of left foot with necrosis of muscle; Q66.70 Congenital pes cavus, unspecified foot; I10 Essential (primary) hypertension; Z79.891 Long term (current) use of opiate analgesic; Z87.891 Personal history of nicotine dependence; K21.9 Gastro-esophageal reflux disease without esophagitis; F32.A Depression, unspecified
CPT/HCPCS: 28112; 36416; 82962; J0690; J2250; J2704; J3010; J7030

== ENCOUNTER → 2025-06-01 13:40 | Outpatient (BNVA) | payer MEDICARE, SELFPAY | PROVIDERS: PCP Registered Nurse; Visit Provider Podiatrist Foot & Ankle Surgery | DX: Z98.890 Other specified postprocedural states (principal) | CPT/HCPCS: 99024 ==

== ENCOUNTER → 2025-06-14 13:13 | Outpatient (BNVA) | payer MEDICARE, SELFPAY | PROVIDERS: PCP Registered Nurse; Visit Provider Podiatrist Foot & Ankle Surgery | DX: Z98.890 Other specified postprocedural states (principal) | CPT/HCPCS: 99024 ==